=== PATIENT | female | born 1955 | race Caucasian/White ===

== ENCOUNTER 2024-05-17 07:17 | Day surgery (SDC) | payer BC ==
[~2024-05-17] VITALS: Ht 165.1 cm; Wt 103.9 kg
[~2024-05-17 07:17] MED LIST: CEFAZOLIN SOD 2 GM in D5W 50 ML IV ONE
[2024-05-17] MEDS ORDERED: ACETAMINOPHEN 500 MG TABLET ONE (07:27)
[2024-05-17] MEDS ORDERED: CELECOXIB 100 MG CAPSULE ONE (07:27)
[2024-05-17] MEDS ORDERED: SCOPOLAMINE HYDROBROMIDE 1 MG PATCH .72 H (TRANSDERM-SCOP) TD ONE (07:29)
[2024-05-17] MEDS ORDERED: GABAPENTIN 300 MG CAPSULE ONE (07:30)
[2024-05-17] MEDS ORDERED: oxyCODONE HCL 10 MG TAB.ER.12H PO ONE (07:30)
[2024-05-17] MEDS: SCOPOLAMINE HYDROBROMIDE 1 MG PATCH .72 H (TRANSDERM-SCOP) TD ONE (07:50)
[2024-05-17] MEDS: ACETAMINOPHEN 500 MG TABLET PO ONE (07:50)
[2024-05-17] MEDS: CELECOXIB 100 MG CAPSULE PO ONE (07:50)
[2024-05-17] MEDS: GABAPENTIN 300 MG CAPSULE PO ONE (07:50)
[2024-05-17] MEDS ORDERED: fentaNYL CITRATE/PF 100 MCG/2 ML AMP ONE (10:00)
[2024-05-17] MEDS ORDERED: VANCOMYCIN HCL 1000 MG/VIAL IV ONE (10:00)
[2024-05-17] MEDS ORDERED: BUPIVACAINE /PF 0.25% 30 ML VIAL INJ ONE (10:00)
[2024-05-17] MEDS ORDERED: LR 1,000 ML IV.SOLN IV ONE (10:00)
[2024-05-17] MEDS ORDERED: LACTULOSE 20 GM/30 ML UDC PO PRN (10:00)
[2024-05-17] MEDS ORDERED: BUPIVACAINE /DEX PF 0.75% SPINAL 2 ML AMP INJ ONE (10:00)
[2024-05-17] MEDS ORDERED: MIDAZOLAM HCL 2 MG/2 ML VIAL (VERSED) ONE (10:00)
[2024-05-17] MEDS ORDERED: WATER FOR IRRIGATION,STERILE 1,000 ML IRRIG.SOLN IR ONE (10:00)
[2024-05-17] MEDS ORDERED: METOCLOPRAMIDE HCL 10 MG/2 ML VIAL IVP PRN ×2 (10:00→11:00)
[2024-05-17] MEDS ORDERED: DIPHENHYDRAMINE HCL 25 MG CAPSULE PO PRN (10:00)
[2024-05-17] MEDS ORDERED: LIDOCAINE MPF 2% 20 MG/1 ML, 5 ML VIAL INH ONE (10:00)
[2024-05-17] MEDS ORDERED: ONDANSETRON HCL 4 MG/2 ML VIAL ONE (10:00)
[2024-05-17] MEDS ORDERED: DEXAMETHASONE SOD PHOSPHATE 4 MG/ML VIAL ONE (10:00)
[2024-05-17] MEDS ORDERED: NS IRRIG SOLN 1000 ML IR ONE (10:00)
[2024-05-17] MEDS ORDERED: SEVOFLURANE 15 MIN GAS INH ONE (10:00)
[2024-05-17] MEDS ORDERED: PROPOFOL 200MG/ 20ML VIAL (DIPRIVAN) IV ONE (10:00)
[2024-05-17] MEDS ORDERED: BISACODYL 10 MG/SUPPOSITORY RC PRN (10:00)
[2024-05-17] MEDS ORDERED: TRANEXAMIC ACID 1,000 MG/10 ML VIAL ONE (10:00)
[2024-05-17] MEDS: oxyCODONE HCL 10 MG TAB.ER.12H PO ONE (10:05)
[2024-05-17] MEDS ORDERED: oxyCODONE HCL 5 MG TABLET PO PRN ×2 (11:00)
[2024-05-17] MEDS ORDERED: LORATADINE 10 MG TABLET PO PRN (11:00)
[2024-05-17] MEDS ORDERED: HYDROmorphone 1 MG/ML INJ. CARTRIDGE IVP PRN ×4 (11:00)
[2024-05-17] MEDS ORDERED: hydrALAZINE HCL 20 MG/ML VIAL IVP PRN (11:00)
[2024-05-17] MEDS ORDERED: MEPERIDINE HCL/PF 25 MG/ML DISP.SYRIN IVP PRN (11:00)
[2024-05-17] MEDS ORDERED: LABETALOL 100 MG/ 20ML VIAL IVP PRN (11:00)
[2024-05-17] MEDS ORDERED: LR 1,000 ML IV SCH (11:00)
[2024-05-17] MEDS ORDERED: traMADol HCL HCL 50 MG TABLET (ULTRAM) PO PRN (11:00)
[2024-05-17] MEDS ORDERED: ceFAZolin SODIUM 2 GM in D5W 50 ML IV SCH (11:15)
[2024-05-17] MEDS ORDERED: ONDANSETRON HCL 4 MG/2 ML VIAL IVP PRN (11:45)
[2024-05-17 13:34] VITALS: BP_SYST 145; PULSE 87; RESP 18; TEMP 97.8; O2SAT 98
[2024-05-17] MEDS: HYDROmorphone 1 MG/ML INJ. CARTRIDGE IVP PRN (13:51)
[2024-05-17] MEDS ORDERED: HYDROmorphone 1 MG/ML INJ. CARTRIDGE ONE (13:51)
[2024-05-17] MEDS ORDERED: ACETAMINOPHEN 500 MG TABLET PO SCH (14:00)
[2024-05-17] MEDS ORDERED: KETOROLAC TROMETHAMINE 10 MG TABLET (TORADOL) PO SCH (14:00)
[2024-05-17] MEDS ORDERED: TAMSULOSIN HCL 0.4 MG CAP ONE (14:09)
[2024-05-17] MEDS ORDERED: TAMSULOSIN HCL 0.4 MG CAP PO ONE (14:15)
[2024-05-17] MEDS ORDERED: oxyCODONE HCL 5 MG TABLET ONE (15:20)
[2024-05-17] MEDS ORDERED: SENNOSIDES/DOCUSATE SODIUM 1 TAB TABLET(SENOKOT-S) PO SCH (21:00)
[2024-05-18] MEDS ORDERED: ASPIRIN 81 MG TAB.CHEW PO SCH (09:00)
[2024-05-18] MEDS ORDERED: CELECOXIB 200 MG CAPSULE PO SCH (11:00)
== END 2024-05-17 17:30 | disposition home or self-care (01) ==
LOC: SDS 07:17 → SMU 07:18 → SDS 17:30
PROVIDERS: ATTEND Student in an Organized Health Care Education/Training Program
DX: M17.11 Unilateral primary osteoarthritis, right knee (principal); M25.761 Osteophyte, right knee; M25.561 Pain in right knee; I10 Essential (primary) hypertension; K21.9 Gastro-esophageal reflux disease without esophagitis; E66.9 Obesity, unspecified; Z68.38 Body mass index [BMI] 38.0-38.9, adult; Z90.710 Acquired absence of both cervix and uterus; Z90.89 Acquired absence of other organs; Z79.899 Other long term (current) drug therapy
CPT/HCPCS: 87081; 27447; 64447; 73560; 97110; 97530; 97116; 97162; 88305; 88311; J3490 ×3; J0690; J0696; J1100; J2250; J2405; J2704; J3370; J3010; J1170; J7060 ×2; J7120; C1713; C1776 ×3